=== PATIENT | female | born 1950 | race Caucasian/White ===

== ENCOUNTER 2019-02-15 14:57 | Observation (INO) ==
[2019-02-15] MEDS ORDERED: ONDANSETRON INJ 2 MG/ML 2 ML VIAL IV PRN (18:22)
[2019-02-15] MEDS ORDERED: ACETAMINOPHEN 325 MG TAB PO PRN (18:22)
[2019-02-15] MEDS ORDERED: ALBUTEROL 0.5% NEB SOLN 2.5 MG/0.5 ML VIAL NEB PRN (18:27)
[2019-02-15] MEDS ORDERED: DOCUSATE SODIUM 100 MG CAP PO PRN (18:27)
[2019-02-15] MEDS ORDERED: GLUCOSE 40% GEL 15 GM TUBE PO PRN (18:31)
[2019-02-15] MEDS ORDERED: CARBOHYDRATES FOR HYPOGLYCEMIA PO PRN (18:31)
[2019-02-15] MEDS ORDERED: DEXTROSE 50% 50 ML SYRINGE IV PRN (18:31)
[2019-02-15] MEDS ORDERED: GLUCOSE 10 TABS/TUBE PO PRN (18:31)
[2019-02-15] MEDS ORDERED: GLUCAGON FOR INJ 1 MG VIAL SQ PRN (18:31)
--- OUTSIDE RECORDS SUMMARY | 2019-02-15 18:33 | External Medical Summary | Continuity of Care Document ---
:1950 Author Name Lizzeth Pineda, Provider Address Unavailable Unavailable , Care Team Providers Name Role Phone Zelda Pineda, [email or web address] [email or web address], UNKNOWN Unavailable Unavailable Problems Active medical history not documented Allergies and Adverse Reactions Allergy history not documented Medications Medications not documented Procedures Procedures not documented Immunizations Immunizations not documented Plan of Treatment Planned Observations Planned Goals not documented Results No Known Results Results not documented
--- NOTE | 2019-02-15 18:57 | History & Physical Report ---
Date of Service February 15, 2019 Assessment & Plan (1) UTI (urinary tract infection): Patient with +UA at OSH. She denies urinary complaints. States that she has frequent UTIs and never has dysuria/frequency/urgency. Her family states that when she has a UTI she frequently becomes febrile and weak and has a similar presentation as today. -UA and culture -Ceftriaxone 1gm IV daily, tailor based on culture results -Blood cultures x 2 sets -Check Lactate Present on Admission?: Yes (2) Elevated d-dimer: Patient with 2-3 days of progressive WARNER, becoming SOB with minimal exertion. She has a new diagnosis of asthma but denies worsening cough/wheeze. Recent car travel to [place]. No clinical evidence of DVT. No VS instability at this time to suggest PE. CTA unable to be obtained due to patient's renal function. -VQ scan Present on Admission?: Yes (3) HTN (hypertension) with goal to be determined: Blood pressure presently stable at 132/74. Patient not on any medications for blood pressure at home. -Continue to monitor Present on Admission?: Yes (4) Diabetes: Patient with diabetes, blood sugar poorly controlled at outside hospital. She is on Lantus 60 units in the morning and 65 units at night -Continue Lantus. Will decrease slightly to 50 units twice daily with insulin sliding scale Check hemoglobin A1c Consistent carb diet as tolerated -Continue gabapentin 300 mg p.o. twice daily Present on Admission?: Yes (5) Dyslipidemia: Chronic. -Continue Lipitor 40 mg p.o. daily -Continue home Zetia 10 mg Present on Admission?: Yes (6) CAD (coronary artery disease): Patient chest pain-free. EKG ordered. Troponin at outside hospital neg ative -Continue aspirin -Continue statins as above Present on Admission?: Yes (7) Depression: Chronic. -Continue Lexapro 10 mg p.o. daily -Continue Prozac 40 mg p.o. daily Present on Admission?: Yes (8) Renal insufficiency: Patient with elevated BUN and creatinine at outside hospital. Uncertain of baseline as we do not have records here. Patient appears clinically dry on exam. -Gentle IV fluids with normal saline -Check BMP and electrolytes now -Avoid nephrotoxic agents -Renal dosing were needed -Hold Lasix 60 mg twice daily for now -Obtain outpatient records to establish baseline renal function Present on Admission?: Yes (9) Anemia: No active bleeding. Continue iron supplement (10) Asthma: Newly diagnosed. Patient with no wheeze. -Continue to monitor History of Present Illness Chief Complaint: Radha De Los Santos Primary Care Provider: NO PCP Patient is a 68yo C female with history of HTN, HLP, DM sent from [facility] for VQ scan due to concern for PE. Patient reports 3 days of fevers (101 at home), shaking chills, diffuse weakness and somnolence. Symptoms began Friday night. She has been taking Tylenol with some relief. Also with SOB, patient states she becomes dyspneic with walking short distances in her home. She was seen at [facility] and found to have a +UA, elevated d-dimer. CTA was desired to rule out PE, however, could not be obtained due to patient's renal function, therefore she was transferred here for imaging. +sick contacts - family member with recent febrile illness +recent travel - car trip to [place] in mid-January. She denies pain or swelling in her legs. No pleuritic CP, hemoptysis, syncope. Recently diagnosed with asthma by PFTs in [place]. She has longstanding history of SOB at baseline which has progressively worsened over the last 2-3 days. She denies wheezing but her family states that she coughs a lot at night. Allergies Allergy/AdvReac Type Severity Reaction Status Date / Time Sulfa (Sulfonamide Allergy Verified 07/14/09 03:13 Antibiotics) sulfamethoxazole Allergy Verified 07/14/09 03:13 ANTIBIOTIC? Allergy Unknown Uncoded 07/22/02 18:25 N Allergy Unknown Uncoded 07/22/02 18:25 NFA Allergy Unknown Uncoded 07/22/02 18:25 NO Allergy Unknown Uncoded 07/22/02 18:25 *TRIMETHOPRIM/SULFAMETHOXAZOLE Allergy Y Uncoded 07/22/02 18:04 (Generic Allergy) SULFAMETHOXAZOLE/TRIMETHOPRIM Allergy Y Uncoded 07/22/02 18:04 (Generic Allergy) Home Medications Home Medications Medication Instructions Recorded Confirmed Type Breo Ellipta 02/15/19 History Coumadin 02/15/19 History Lantus U-100 Insulin 60 units SUBCUT QAM 02/15/19 02/15/19 History Lantus U-100 Insulin 65 units SUBCUT HS 02/15/19 02/15/19 History Lasix 60 mg PO BID 02/15/19 02/15/19 History Lexapro 10 mg PO DAILY 02/15/19 02/15/19 History Lipitor 40 mg PO DAILY 02/15/19 02/15/19 History Novolog Flexpen U-100 Insulin 13 units SUBCUT AC 02/15/19 02/15/19 History Prozac 40 mg PO DAILY 02/15/19 02/15/19 History Vitamin D2 02/15/19 History Zetia 10 mg PO DAILY 02/15/19 02/15/19 History aspirin 81 mg PO DAILY 02/15/19 02/15/19 History ferrous sulfate 325 mg PO DAILY 02/15/19 02/15/19 History gabapentin 300 mg PO BID 02/15/19 02/15/19 History potassium chloride 10 meq PO DAILY 02/15/19 02/15/19 History zolpidem 5 mg PO HS 02/15/19 02/15/19 History Past Med/Surg History Medical History Asthma CAD (coronary artery disease) Diabetes Dyslipidemia Hypertension Obesity Surgical History History of aortic valve replacement bioprosthetic. 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 Beliefs That Will Affect Care: None Current Living Situation: Family Other Information That Helps Us Care for You: No Feels Safe at Home: Yes Safety Concerns: Feels Safe At This Time Smoking Status: Never smoker Hx Alcohol Use: No Hx Substance Use: No Review of Systems Review of Systems: All systems reviewed & are unremarkable except as noted in HPI & below Patient denies chest pain, palpitations, dizziness, syncope Denies joint pain or swelling Denies rash Denies dysuria, frequency/urgency +Back pain, bandlike across lower back Physical Exam Physical Exam: General: obese female, resting comfortably, NAD, non-toxic in appearance, AA&O x 4 Skin: warm, dry, intact, no rashes or lesions HEENT: NC/AT, PERRL, EOMI, anicteric sclera, conjunctiva without injection, external ear normal to inspection and nontender, nares patent, dry mucus membranes, no oropharyngeal lesions, neck supple, trachea midline, no LAD, no thyromegaly, no JVD, exam limited secondary to habitus Heart: +S1/S2, regular, 3/6 VANE at 2nd right ICS Lungs: equal air entry bilaterally, no rales/rhonchi/wheezes Abd: +BS, soft, mildly tender in LLQ, ND, no masses/organomegaly/ascites, no CVA tenderness Ext: warm, 2+ pulses in UE/LE bilaterally, no clubbing/cyanosis or edema, nontender Neuro: nonfocal, patient AA&O x 4, speech intact, no facial droop, moving all extremities on command with equal strength 5/5 Results & Data Vital Signs (Past 12 Hours) From OSH: HR=74 BP = 174/103 RR=16 97% Laboratory Results Labs from OSH: WBC=8.8 Hg=14 Hct=42.2 Hnx=669, elevated Neutrophil at 81.7% Ol=077 K=4.3 Cl=96 CO2=28 BUN=25 Cr=2 Kjo=520 Ca=9 tBili=1.9 Alb=3.2 Mg=1.6 Trop = <0.02 AST/ALT WNL TFTs WNL Rapid flu - negative BNP = 259 D-dimer = 776 INR=1.96 Lactate = 4.3, repeat = 1.2 UA = +Leukocytes, nitrites, moderate bacteria and epi Basic Labs ordered and pending Diagnostic Findings CXR and EKG ordered ECG Additional Comments: Ordered Code Status & VTE Plan Code Status FULL VTE Prophylaxis Plan VTE Prophylaxis will be ordered: Yes PG Care Time/CCT Total # of Minutes Spent Total Time Spent with Patient: Total time spent is greater than 50% in coordination of care (as documented) at patient's floor/unit and/or counseling patient: (1) UTI (urinary tract infection) Hematuria presence: without hematuria Urinary tract infection type: site unspecified Qualified Code(s): N39.0 - Urinary tract infection, site not specified (2) Diabetes Diabetes mellitus type: type 2 Diabetes mellitus detention insulin use: with detention use Diabetes mellitus complication status: without complication Qualified Code(s): E11.9 - Type 2 diabetes mellitus without complications; Z79.4 - intermodal truck driver (current) use of insulin (3) CAD (coronary artery disease) Coronary Disease-Associated Artery/Lesion type: unspecified vessel or lesion type [place] vs. transplanted heart: [place] heart Associated angina: without angina Qualified Code(s): I25.10 - Atherosclerotic heart disease of [place] coronary artery without angina pectoris (4) Depression Depression Type: unspecified Qualified Code(s): F32.9 - Major depressive disorder, single episode, unspecified (5) Anemia Anemia type: iron deficiency Iron deficiency anemia type: unspecified iron deficiency Qualified Code(s): D50.9 - Iron deficiency anemia, unspecified (6) Asthma Asthma severity: unspecified severity Asthma persistence: unspecified Asthma complication type: uncomplicated Qualified Code(s): J45.909 - Unspecified asthma, uncomplicated
[2019-02-15] MEDS ORDERED: PATIENT'S HEIGHT AND/OR WEIGHT NEEDED SCH (19:00)
[2019-02-15] MEDS: SODIUM CHLORIDE 0.9% 1000ML 1,000 ML IV SCH (19:14)
--- NOTE | 2019-02-15 19:32 | XRay Report ---
XR chest 1V portable CLINICAL HISTORY: 68 years-old Female presenting with SOB. TECHNIQUE: Portable upright AP view of the chest was obtained. COMPARISON: None. FINDINGS: Atherosclerosis of the aortic arch. Cardiac silhouette top normal in size. Mild prominence of lung ma rkings suggesting interstitial prominence. Questionable nodular opacity over the left lung base, inde terminate. No large effusion or pneumothorax. Degenerative changes of the thoracic spine. Upper abdom en normal. IMPRESSION: 1. Nodular density at the left lung base. PA and lateral views are recommended as this could represe nt a prominent rib shadow or other artifactual etiology rather than a pulmonary nodule. 2. Prominence of interstitial lung markings could suggest congestive change. No edward pulmonary hernandez a. Electronically signed by: Savage Tadeo M.D. 02/15/2019 7:30 PM
[2019-02-15 19:41] LABS: Basophils # (auto) 0.03 K/uL (0-0.2); Basophils % (auto) 0.4 %; Eosinophils # (auto) 0.01 K/uL (0-0.5); Eosinophils % (auto) 0.1 %; Hematocrit (blood only) 38.4 % (37-47); Hemoglobin 12.9 g/dL (12.0-16.0); Immature Granulocytes # (auto) 0.02 K/uL (0.00-0.02); Immature Granulocytes % (auto) 0.2 %; Lymphocytes # (auto) 1.81 K/uL (1.2-3.4); Lymphocytes % (auto) 21.8 %; Mean Corpuscular Hemoglobin 30.1 pg (25-34); Mean Corpuscular Hgb Conc 33.6 g/dL (32-36); Mean Corpuscular Volume 89.7 fL (80-100); Mean Platelet Volume 10.2 fL (7.4-10.4); Monocytes # (auto) 0.69 K/uL (0.11-0.59); Monocytes % (auto) 8.3 %; Neutrophils # (auto) 5.74 K/uL (1.4-6.5); Neutrophils % (auto) 69.2 %; Platelet Count 159 K/uL (130-400); RDW Coefficient of Variation 14.8 % (11.5-14.5); RDW Standard Deviation 48.3 fL (36.4-46.3); Red Blood Count 4.28 M/uL (4.2-5.4)
[2019-02-15 20:01] LABS: BUN Creatinine Ratio 12.8 (10-20); Bilirubin Direct 0.3 mg/dl (0-0.2); Calcium 8.8 mg/dl (8.5-10.1); Creatinine Clr Calc Pharmacy 37.5 ml/min; Est GFR (African American) 32.9; Est GFR (Non-African American) 28.4; Potassium 3.6 mmol/L (3.5-5.1)
[2019-02-15 20:04] LABS: Bilirubin,Total 1.3 mg/dl (0.2-1); Magnesium 1.9 mg/dl (1.8-2.4); Phosphorus 3.6 mg/dl (2.5-4.9); Total Protein 6.7 gm/dl (6.4-8.2)
[2019-02-15] MEDS: cefTRIAXone SODIUM 2,000 MG in DEXTROSE 5% 50 ML IV SCH (21:03)
[2019-02-15] MEDS: GABAPENTIN 300 MG CAP PO SCH (21:06)
[2019-02-15] MEDS: ZOLPIDEM TARTRATE 5 MG TAB PO SCH (21:08)
[2019-02-15 21:13] LABS: INR 1.9 (0.9-1.1); Prothrombin Time 18.9 Seconds (9.0-12.0)
[2019-02-15] MEDS ORDERED: WARFARIN SOD 3 MG TAB PO SCH (21:30)
[2019-02-15] MEDS ORDERED: HEPARIN SOD 5,000 UNIT/0.5 ML VIAL SQ SCH (22:00)
[2019-02-15] MEDS: INSULIN ASPART 100 UNITS/ML 3 ML PEN SC SCH (22:16)
[2019-02-15] MEDS: INSULIN GLARGINE SOLOSTAR 100 UNITS/ML 3 ML PEN SC SCH (22:17)
--- NOTE | 2019-02-15 22:30 | Nuclear Medicine Report ---
NM pul ventilation CLINICAL HISTORY: 68 years-old Female presenting with SOB, WARNER, elevated D-dimer at OSH. TECHNIQUE: Immediately following the inhalation of 33.8 mCi of technetium 99 M DTPA for the ventilati on scan and the intravenous administration of 5 mCi of technetium 99 M MAA for the perfusion scan, an terior, oblique, lateral, and posterior views of the chest were obtained. Modified PIOPED II criteria were used for interpretation. COMPARISON: 02/15/2019. FINDINGS: Heterogeneity of perfusion most prominently within the left lung. No peripheral filling defects on pe rfusion imaging. No mismatched defects are identified on this examination. Perfusion and ventilation to both lungs is of the left preserved. Ingested radiotracer noted within the esophagus and stomach o n ventilation imaging. Reference: Modified PIOPED II criteria Normal: No perfusion defects. Very low likelihood ratio: Nonsegmental, perfusion defect < chest x-ray lesion, 1-3 small segmental d efects, solitary triple matched defect (< or = 1 segment) in mid or upper lung, stripe sign, solitary large pleural effusion, > or = to 2 matched defects with regionally normal chest x-ray. High likelihood ratio: > or = 2 large mismatch segmental defects. Nondiagnostic: All other findings. IMPRESSION: Very low likelihood for pulmonary embolus. Electronically signed by: Savage Tadeo M.D. 02/15/2019 10:28 PM
[2019-02-15 22:50] LABS: Appearance Urine Cloudy (Clear); Bacteria Urine Automated 1+ (Negative); Bilirubin Urine Negative (Negative); Blood Urine Negative (Negative); Color Urine Dark Yellow; Epithelial Cell Urine Auto >30 /lpf (0-5); Glucose Urine UA Negative (Negative); Ketones Urine Negative (Negative); Leukocyte Esterase Urine 3+ (Negative); Nitrite Urine Positive (Negative); Protein Urine Negative (Negative); Urobilinogen Urine Negative (Negative); WBC Urine Automated >30 /hpf (0-5); pH Urine 5.5 (4.5-7.5)
[2019-02-15 23:05] LABS: RBC Urine Automated 0-4 /hpf (0-4)
[2019-02-16 06:23] LABS: Estimated Average Glucose 180 mg/dl; Hemoglobin A1C 7.9 % (4.5-5.6)
[2019-02-16] MEDS: SODIUM CHLORIDE 0.9% 1000ML 1,000 ML IV SCH (08:20)
[2019-02-16] MEDS: INSULIN ASPART 100 UNITS/ML 3 ML PEN SC SCH ×4 (08:23→21:12)
[2019-02-16] MEDS: INSULIN GLARGINE SOLOSTAR 100 UNITS/ML 3 ML PEN SC SCH ×2 (08:24→21:10)
[2019-02-16] MEDS: ASPIRIN 81 MG ECTAB PO SCH (08:34)
[2019-02-16] MEDS: FERROUS SULFATE 325 MG TAB PO SCH (08:34)
[2019-02-16] MEDS: GABAPENTIN 300 MG CAP PO SCH ×2 (08:35→21:11)
[2019-02-16] MEDS: ATORVASTATIN 40 MG TAB PO SCH (08:35)
[2019-02-16] MEDS: ESCITALOPRAM OXALATE 10 MG TAB PO SCH (08:35)
[2019-02-16] MEDS: FLUOXETINE HCL 20 MG CAP PO SCH (08:36)
[2019-02-16] MEDS: EZETIMIBE 10 MG TABLET PO SCH (08:36)
[2019-02-16 11:27] LABS: Influenza A virus by PCR Neg for Influ A (Neg); Influenza B virus by PCR Neg for Influ B (Neg)
[2019-02-16 14:24] LABS: Calcium 8.6 mg/dl (8.5-10.1); Creatinine Clr Calc Pharmacy 41.9 ml/min; Est GFR (Non-African American) 32.8; Potassium 3.5 mmol/L (3.5-5.1)
[2019-02-16] MEDS ORDERED: WARFARIN SOD 6 MG TAB PO SCH (16:00)
[2019-02-16] MEDS: cefTRIAXone SODIUM 2,000 MG in DEXTROSE 5% 50 ML IV SCH (21:03)
[2019-02-16] MEDS: ZOLPIDEM TARTRATE 5 MG TAB PO SCH (21:15)
--- NOTE | 2019-02-16 22:14 | Hospitalist Progress Note ---
Date of Service February 16, 2019 Assessment & Plan (1) UTI (urinary tract infection): Suspected. Cont jovana. Will need to call [facility] and f/u on urine cx sent there. Thus far our blood/urine cx's are negative. Checked flu PCR because of fever/chills/etc -- negative testing. (2) Elevated d-dimer: Patient's presenting INR was just shy of 2. V/Q scan low probability for PE. I do not have concerns of new VTE event. Elevated d dimer likely due to acute phase reactant in setting of infection. (3) HTN (hypertension) with goal to be determined: Controlled at this time without meds (4) Diabetes: Hba1c 7.9% cont lantus cont novolog adjust as needed (5) Dyslipidemia: Continue Lipitor 40 mg p.o. daily and Zetia 10 mg (6) CAD (coronary artery disease): No evidence of ACS at this time Cont statin, asa, etc follows w/ Dr Pineda in [place] (7) Depression: Chronic. -Continue Lexapro 10 mg p.o. daily -Continue Prozac 40 mg p.o. daily (8) Renal insufficiency: baseline Cr uncertain however, likely some element of SHAVONNE as her Cr is already improving with gentle fluids repeat BMP in am she is eating/drinking well and thus stop fluids this afternoon (9) Anemia: H/H stable (10) Asthma: Newly diagnosed based on PFTs done in [place] recently. (11) PAF (paroxysmal atrial fibrillation): by history had PAF and was cardioverted for this years ago?? is on coumadin for PAF? daily INR cont coumadin (12) Morbid obesity with BMI of 50.0-59.9, adult: BMI 52 (13) DVT prophylaxis: coumadin PT eval tomorrow d/c home tomorrow if doing well? Subjective patient reports feeling better today. more energy, appetite improved. has WARNER but this is chronic and at baseline. WARNER present for 1-2 years. recently sent for PFTs by her PCP - told she had asthma. follows with a Dr Pineda in [place] for cardiac issues. takes coumadin for a.fib s/p cardioversion several years ago? no further fever/chills. Review of Systems Constitutional: no fever, no chills, no sweats, no fatigue and no anorexia Respiratory: no cough Cardiovascular: no chest pain Gastrointestinal: no abdominal pain, no nausea and no vomiting Physical Exam Constitutional: no acute distress, not morbidly obese and no altered mental status ENMT: external ear and nose normal, oropharynx normal Respiratory: normal respiratory effort, lungs clear to auscultation Auscultation: + diminished lung sounds (bases) Cardiovascular: Rate/Rhythm: regular rate and regular rhythm Heart Sounds: normal S1, normal S2 and + murmur (2/6 RUSB) Vessels: posterior tibial pulses present and dorsalis pedis pulses present; no JVD Extremities: no edema Gastrointestinal (Abdomen): normal bowel sounds, soft, nontender, no hepatosplenomegaly Psychiatric: A+Ox3, euthymic affect Results & Data Vital Signs (Past 12 Hours) Vital Signs Temp Pulse Pulse Resp BP Pulse Ox 02/16/19 19:21 36.6 C 69 23 141/69 H 90 02/16/19 16:30 65 02/16/19 15:20 36.5 C 67 18 144/72 H 90 02/16/19 11:24 36.9 C 72 20 131/63 92 Laboratory Results Laboratory Results - last 24 hr 02/15/19 02/15/19 02/16/19 22:16 22:20 05:41 Sodium Potassium Chloride Carbon Dioxide Anion Gap BUN Creatinine Est Cr Clr Drug Dosing Est GFR ( Amer) Est GFR (Non-Af Amer) BUN/Creatinine Ratio Glucose POC Glucose 115 H Estimat Average Glucose 180 Hemoglobin A1c 7.9 H Calcium Urine Color Dark Yellow Urine Appearance Cloudy A Urine pH 5.5 Ur Specific [place] 1.020 Urine Protein Negative Urine Glucose (UA) Negative Urine Ketones Negative Urine Blood Negative Urine Nitrite Positive A Urine Bilirubin Negative Urine Urobilinogen Negative Ur Leukocyte Esterase 3+ H Urine WBC (Auto) >30 H Urine RBC (Auto) 0-4 U Hyaline Cast (Auto) 1-5 U Epithel Cells (Auto) >30 H Urine Bacteria (Auto) 1+ H Influenza Type A (PCR) Influenza Type B (PCR) 02/16/19 02/16/19 02/16/19 07:44 10:15 11:38 Sodium Potassium Chloride Carbon Dioxide Anion Gap BUN Creatinine Est Cr Clr Drug Dosing Est GFR ( Amer) Est GFR (Non-Af Amer) BUN/Creatinine Ratio Glucose POC Glucose 79 101 H Estimat Average Glucose Hemoglobin A1c Calcium Urine Color Urine Appearance Urine pH Ur Specific [place] Urine Protein Urine Glucose (UA) Urine Ketones Urine Blood Urine Nitrite Urine Bilirubin Urine Urobilinogen Ur Leukocyte Esterase Urine WBC (Auto) Urine RBC (Auto) U Hyaline Cast (Auto) U Epithel Cells (Auto) Urine Bacteria (Auto) Influenza Type A (PCR) Neg for Influ A Influenza Type B (PCR) Neg for Influ B 02/16/19 02/16/19 02/16/19 13:38 16:38 20:20 Sodium 139 Potassium 3.5 Chloride 103 Carbon Dioxide 29 Anion Gap 7.0 BUN 22 H Creatinine 1.59 H Est Cr Clr Drug Dosing 41.9 Est GFR ( Amer) 38.0 Est GFR (Non-Af Amer) 32.8 BUN/Creatinine Ratio 14.0 Glucose 102 H POC Glucose 93 113 H Estimat Average Glucose Hemoglobin A1c Calcium 8.6 Urine Color Urine Appearance Urine pH Ur Specific [place] Urine Protein Urine Glucose (UA) Urine Ketones Urine Blood Urine Nitrite Urine Bilirubin Urine Urobilinogen Ur Leukocyte Esterase Urine WBC (Auto) Urine RBC (Auto) U Hyaline Cast (Auto) U Epithel Cells (Auto) Urine Bacteria (Auto) Influenza Type A (PCR) Influenza Type B (PCR) PG Care Time/CCT Total # of Minutes Spent Total Time Spent with Patient: Total time spent is greater than 50% in coordination of care (as documented) at patient's floor/unit and/or counseling patient: (1) UTI (urinary tract infection) Hematuria presence: without hematuria Urinary tract infection type: site unspecified Qualified Code(s): N39.0 - Urinary tract infection, site not specified (2) Diabetes Diabetes mellitus complication status: without complication Diabetes mellitus usp insulin use: with usp use Diabetes mellitus type: type 2 Qualified Code(s): E11.9 - Type 2 diabetes mellitus without complications; Z79.4 - terminologist (current) use of insulin (3) CAD (coronary artery disease) Associated angina: without angina Coronary Disease-Associated Artery/Lesion type: unspecified vessel or lesion type [place] vs. transplanted heart: [place] heart Qualified Code(s): I25.10 - Atherosclerotic heart disease of [place] coronary artery without angina pectoris (4) Anemia Anemia type: iron deficiency Iron deficiency anemia type: unspecified iron deficiency Qualified Code(s): D50.9 - Iron deficiency anemia, unspecified (5) Depression Depression Type: unspecified Qualified Code(s): F32.9 - Major depressive disorder, single episode, unspecified (6) Asthma Asthma complication type: uncomplicated Asthma persistence: unspecified Asthma severity: unspecified severity Qualified Code(s): J45.909 - Unspecified asthma, uncomplicated
[2019-02-17 06:18] LABS: Basophils # (auto) 0.02 K/uL (0-0.2); Basophils % (auto) 0.3 %; Eosinophils # (auto) 0.34 K/uL (0-0.5); Eosinophils % (auto) 4.9 %; Hematocrit (blood only) 39.7 % (37-47); Hemoglobin 13.1 g/dL (12.0-16.0); Immature Granulocytes # (auto) 0.01 K/uL (0.00-0.02); Immature Granulocytes % (auto) 0.1 %; Lymphocytes # (auto) 1.57 K/uL (1.2-3.4); Lymphocytes % (auto) 22.6 %; Mean Corpuscular Hemoglobin 29.6 pg (25-34); Mean Corpuscular Volume 89.8 fL (80-100); Mean Platelet Volume 10.2 fL (7.4-10.4); Monocytes # (auto) 0.41 K/uL (0.11-0.59); Monocytes % (auto) 5.9 %; Neutrophils # (auto) 4.61 K/uL (1.4-6.5); Neutrophils % (auto) 66.2 %; Platelet Count 152 K/uL (130-400); RDW Coefficient of Variation 14.8 % (11.5-14.5); RDW Standard Deviation 48.6 fL (36.4-46.3); Red Blood Count 4.42 M/uL (4.2-5.4); White Blood Count 6.96 K/uL (4.8-10.8)
[2019-02-17 06:28] LABS: Prothrombin Time 19.7 Seconds (9.0-12.0)
[2019-02-17 06:51] LABS: Calcium 8.6 mg/dl (8.5-10.1); Creatinine Clr Calc Pharmacy 51.3 ml/min; Est GFR (African American) 48.5; Est GFR (Non-African American) 41.8; Potassium 3.3 mmol/L (3.5-5.1)
[2019-02-17] MEDS ORDERED: INSULIN GLARGINE SOLOSTAR 100 UNITS/ML 3 ML PEN SC SCH (09:00)
[2019-02-17] MEDS ORDERED: POTASSIUM CHLORIDE 20 MEQ TABCR PO STA (09:04)
[2019-02-17] MEDS: INSULIN ASPART 100 UNITS/ML 3 ML PEN SC SCH ×2 (09:13→13:00)
[2019-02-17] MEDS: ASPIRIN 81 MG ECTAB PO SCH (09:19)
[2019-02-17] MEDS: ESCITALOPRAM OXALATE 10 MG TAB PO SCH (09:20)
[2019-02-17] MEDS: FERROUS SULFATE 325 MG TAB PO SCH (09:20)
[2019-02-17] MEDS: GABAPENTIN 300 MG CAP PO SCH (09:21)
[2019-02-17] MEDS: ATORVASTATIN 40 MG TAB PO SCH (09:21)
[2019-02-17] MEDS: EZETIMIBE 10 MG TABLET PO SCH (09:22)
[2019-02-17] MEDS: FLUOXETINE HCL 20 MG CAP PO SCH (09:22)
--- NOTE | 2019-02-23 05:32 | Discharge Summary ---
Date of Service date of admission - February 15, 2019 date of discharge - February 17, 2019 Admission HPI Per Admitting Provider Patient is a 68yo C female with history of HTN, Hyperlipidemia, PAF, and T2DM sent from [facility] ER for consideration of VQ scan due to concern for PE. Patient reports 3 days of fevers (101 at home), shaking chills, diffuse weakness and somnolence. Symptoms began Friday night. She has been taking Tylenol with some relief. Also with SOB, patient states she becomes dyspneic with walking short distances in her home. She was seen at [place] and found to have a +UA, elevated d-dimer. CTA was desired to rule out PE, however, could not be obtained due to patient's renal function, therefore she was transferred here for consideration of VQ imaging. +sick contacts - family member with recent febrile illness +recent travel - car trip to [place] in mid-January. She denies pain or swelling in her legs. No pleuritic CP, hemoptysis, syncope. Recently diagnosed with asthma by PFTs in [place]. She has longstanding history of SOB at baseline which has progressively worsened over the last 2-3 days. She denies wheezing but her family states that she coughs a lot at night. Principal Diagnosis suspected UTI Discharge Exam Constitutional + morbidly obese; no acute distress, not ill appearing and no altered mental status ENMT external ear and nose normal, oropharynx normal Respiratory normal respiratory effort, lungs clear to auscultation Auscultation: + diminished lung sounds (bases) Cardiovascular Rate/Rhythm: regular rate and regular rhythm Heart Sounds: normal S1, normal S2 and + murmur (2/6 RUSB) Vessels: posterior tibial pulses present and dorsalis pedis pulses present; no JVD Extremities: no edema Gastrointestinal (Abdomen) normal bowel sounds, soft, nontender, no hepatosplenomegaly Psychiatric A+Ox3, euthymic affect Discharge Data Allergies Allergy/AdvReac Type Severity Reaction Status Date / Time sulfamethoxazole Allergy Unknown Verified 02/15/19 20:35 [From Bactrim] trimethoprim [From Bactrim] Allergy Unknown Verified 02/15/19 20:35 Consultations PT email manager Procedures Performed VQ scan - LOW probability for PE Hospital Course (1) UTI (urinary tract infection): Suspected. She was treated with IV rocephin while hospitalized and transitioned to oral cefdinir at discharge. Unfortunately the patient's urine culture from [facility] was contaminated and thus a specific pathogen was not isolated. Blood cultures drawn at [facility] as well as [facility] were all negative. Repeat urine culture at [facility] was also negative. Flu PCR testing was negative. The patient clinically improved with resolution of fever, chills, and anorexia. (2) Elevated d-dimer: Patient's presenting INR was just shy of 2. V/Q scan showed low probability for PE. D dimer was likely elevated as an acute phase reactant in the setting of infection (suspected UTI). (3) HTN (hypertension) with goal to be determined: Controlled during the stay without medication. (4) Diabetes: Hba1c 7.9%. cont lantus at discharge. She did have mildly low sugars during this stay and thus it was recommended she LOWER her lantus to 45 units BID. This can always be adjusted back up as necessary. (5) Dyslipidemia: Continue Lipitor 40 mg p.o. daily and Zetia 10 mg (6) CAD (coronary artery disease): No evidence of ACS during this hospitalization. Cont statin, asa, etc follows w/ Dr Ezio Pineda in [place]. EKG showed LBBB which presumably is chronic/old. Echo results were obtained from his office (dated 2017) showed preserved EF, grade 4 diastolic dysfunction, pulmonary HTN, moderate MR, and normal functioning bioprosthetic aortic valve. She did not have any ischemic symptoms while here. (7) Depression: Chronic. -Continue Lexapro 10 mg p.o. daily -Continue Prozac 40 mg p.o. daily (8) Acute kidney injury: Presenting creatinine was 1.8, improving to 1.3 at discharge. (9) Renal insufficiency: Baseline Cr uncertain. However, likely some element of SHAVONNE as her Cr improved from 1.8 to 1.3 at discharge. At minimum may have CKD stage 3. (10) Asthma: Newly diagnosed based on PFTs done in [place] recently. I requested those PFT results but never received them. 2-step O2 test did NOT demonstrate any need for supplemental oxygen at discharge. (11) PAF (paroxysmal atrial fibrillation): By history had PAF and was cardioverted for this years ago. Daughter confirmed her mother takes coumadin for this. INR at discharge was 2. No PAF was seen on tele while hospitalized. (12) Morbid obesity with BMI of 50.0-59.9, adult: BMI 52/53 (13) LBBB (left bundle branch block): seen on outside EKG from [facility]. this is presumably chronic in the setting of her known CAD. she did not have ischemic symptoms while hospitalized. she follows with Dr Pineda from cardiology in [place]. (14) Pulmonary HTN: May be a contributor to her chronic dyspnea on exertion. As seen on echo from 2018. (15) Chronic diastolic (congestive) heart failure: Compensated while hospitalized. She will continue her normal lasix of 60mg BID. (16) Abnormal CXR: Questionable nodule on plain films. Advised repeat CXR as outpatient in 1 month and if nodule is still present then consider CT chest. Total Time Total Time Spent Total Time Spent (In Minutes): 30 Total Time Includes: Examination of the Patient, Discharge Planning and Medication Reconciliation Discharge Plan Discharge Items Patient Disposition: Home - Self-Care Reason For Visit: suspected UTI (urinary tract infection) Discharge Diagnosis: 1. suspected UTI - resolving 2. concern for blood clots in lungs (PEs) -- ruled out with negative scan of lungs 3. dehydration - resolved 4. congestive heart failure - controlled at this time Condition on Discharge: Good Goals: 1. treat UTI 2. ensure that there are no blood clots in lungs (PEs) Activity: Resume your previous activity Activity Comment: as tolerated Non-emergency contact: Primary Care Provider and Core Mounter Call non-emergency contact if: you have any medication questions, your symptoms worsen and your temperature is above 101 Follow-up/Referrals: Dionisio Roth [Primary Care Provider] - 02/23/19 2:15 pm (Please, follow up with Dr. Roth on FridayFebruary 23 at 2:15 in [facility]. *If you need to change this appointment, call the office at [phone].) Ezio Pineda [Staff Physician] - (see Dr Pineda as scheduled this fall ) Diet: Carb Consistent or DM2 and Heart Healthy Fluids: 1800ml (7 cups) Addtl Attending Provider Instructions: You were transferred from [facility] due to concerns of urinary tract infection (UTI) and needing additional tests to rule out blood clots in the lungs (also known as pulmonary emboli). Your fever and chills quickly resolved with antibiotics. Your urine culture from [facility] did not grow a specific bacterium but we are still suspicious you did indeed have a UTI. As for the concern of blood clots your lung scan showed low risk for such. Thus, there is little chance that you had blood clots in the last few days, especially knowing that you take coumadin every day. We checked you for the flu -- your test was negative for this. Your chest x-rays did not show pneumonia. Your blood cultures were negative thus you did not have bacteria in your blood stream. Lastly, you passed your "2 step" oxygen test. This means that your oxygen levels stayed normal with walking and you do not need oxygen at this time. Recommendations - 1. take cefdinir antibiotic twice daily for 5 days; take your first dose TONIGHT. 2. INCREASE your potassium supplement to 20meq once daily (you previously took 10meq daily). I sent a new script in for you. 3. resume your coumadin at your previous dosing schedule. Your INR today is 2. Please have your INR checked on 02/19/19, by Dr Roth's office. 4. check your weights EVERY DAY first thing in the morning upon awakening. Notify your silver chaser or primary care doctor if you gain more than 3 pounds in 1-2 days as this could be a sign of fluid retention. 5. your blood sugars were on the low end of normal all throughout your stay. To be on safe side please LOWER your lantus to 45 units in the morning and 45 units at bedtime. If your sugars rise the lantus dose can always be increased again. 6. your chest x-ray here showed a questionable "nodule" in the bottom of the left lung. Please have Dr Roth repeat an x-ray in 1 month to determine if indeed there is a nodule. You may potentially need a CAT scan to sort the issue out. If there is a nodule most are benign (not harmful). follow-up -- see separate section return to any hospital if -- * you have fever over 100.5 degrees * you have worsening shortness of breath * you have chest pains * you have abdominal pains, nausea, vomiting or severe diarrhea * you have rapid weight gain from fluid * any other concerns Pending Studies at Discharge: Yes Studies:: blood cultures but thus far negative Stand-Alone Forms: My [facility] Medications and DC Order Prescriptions: New warfarin [Coumadin] 3 mg Tablet 3 mg PO [id number]@1600 Qty: 30 RF: 0 warfarin [Coumadin] 6 mg Tablet 6 mg PO [id number]@1600 Qty: 30 RF: 0 potassium chloride 20 mEq tablet extended release 20 meq PO DAILY Qty: 30 RF: 5 Breo Ellipta 100-25 mcg/dose blister with device 1 puffs INH DAILY Qty: 60 RF: 1 Continued Lasix 60 mg PO BID RF: 0 Lexapro 10 mg PO DAILY RF: 0 Lipitor 40 mg PO DAILY RF: 0 Novolog Flexpen U-100 Insulin 13 units subcut AC RF: 0 Prozac 40 mg PO DAILY RF: 0 Zetia 10 mg PO DAILY RF: 0 aspirin 81 mg PO DAILY RF: 0 ferrous sulfate 325 mg PO DAILY RF: 0 gabapentin 300 mg PO BID RF: 0 zolpidem 5 mg PO HS RF: 0 Changed Lantus U-100 Insulin 45 units subcut QAM Qty: 0 RF: 0 Lantus U-100 Insulin 45 units subcut HS Qty: 0 RF: 0 Vitamin D2 2,000 unit PO DAILY Qty: 0 RF: 0 Discontinued potassium chloride 10 meq PO DAILY RF: 0 Discharge Orders: Discharge Order (Routine); Ordered 02/17/19 Ordered By: Tomer Lovell Admission Data Admit Date/Time: 02/15/19 18:30 Attending Provider: Tomer Lovell Admit Provider: Re Thomason Primary Care Provider: Dionisio Roth Other Interventions: Discharge Summary Assessment (RN) Last Done: 02/17/19 13:11 DC Date/Time DO NOT enter until pt leaves facility: 02/17/19 13:45
== END 2019-02-17 13:45 | disposition home or self-care (01) ==
LOC: 2N → SUATTDRO 18:30
DX: N28.9 Disorder of kidney and ureter, unspecified; E11.9 Type 2 diabetes mellitus without complications; Z79.01 Long term (current) use of anticoagulants; Z95.2 Presence of prosthetic heart valve; Z68.43 Body mass index [BMI] 50.0-59.9, adult; E66.9 Obesity, unspecified; Z79.4 Long term (current) use of insulin; I10 Essential (primary) hypertension; I25.10 Atherosclerotic heart disease of native coronary artery without angina pectoris; J45.909 Unspecified asthma, uncomplicated; E78.5 Hyperlipidemia, unspecified; R79.1 Abnormal coagulation profile; D64.9 Anemia, unspecified; N39.0 Urinary tract infection, site not specified; Z79.899 Other long term (current) drug therapy